=== PATIENT | male | born 1960 | race African-American/Black ===

== ENCOUNTER 2020-09-04 10:40 | Inpatient (IN) | payer OTHER, SELFPAY ==
[2020-09-04] MEDS ORDERED: Ondansetron PF 4 MG/2 ML Vial ONE (11:01)
[2020-09-04] MEDS ORDERED: Ketorolac Tromethamine 30 MG/ML VIAL ONE (11:01)
[2020-09-04 11:40] LABS: ALT (SGPT) 10 U/L (8-55); AST (SGOT) 25 U/L (5-34); Albumin 4.1 g/dL (3.4-4.8); Alkaline Phosphatase 80 U/L (40-110); Anion Gap 17 mmol/L (10-20); BUN (Urea Nitrogen) 8 mg/dL (8.4-25.7); Bilirubin, Direct 0.2 mg/dL (0.1-0.3); Bilirubin, Total 0.6 mg/dL (0.2-1.2); Calc. Creatinine Clearance 0 mL/min (70-130); Calcium 8.9 mg/dL (7.8-10.44); Carbon Dioxide 22 mmol/L (23-31); Chloride 106 mmol/L (98-107); Globulin 3.9 g/dL (2.4-3.5); Glucose 122 mg/dL (80-115); Hemoglobin 13.7 g/dL (14.0-18.0); Lipase 7 U/L (8-78); Mean Corpuscular HGB CONC 33.8 g/dL (32.0-36.0); Mean Corpuscular Hemoglobin 28.9 pg (27.0-31.0); Mean Corpuscular Volume 85.6 fL (78.0-98.0); Mean Platelet Volume 9.3 fL (7.4-10.4); Platelet Count 227 thou/uL (130-400); Potassium 4.6 mmol/L (3.5-5.1); RBC Distribution Width 13.8 % (11.5-14.5); Red Blood Cell (RBC) Count 4.75 mill/uL (4.70-6.10); Sodium 140 mmol/L (136-145); White Blood Cell (WBC) Count 7.5 thou/uL (4.8-10.8)
[2020-09-04 11:41] LABS: Eosinophils 2 % (0-10); Lymphocytes 63 % (21-51); MDiff Complete? YES; Monocytes 6 % (0-10); Neutrophil 29 % (42-75)
[2020-09-04] MEDS ORDERED: Morphine 4 MG/ML VIAL ONE ×2 (12:43→14:52)
[2020-09-04] MEDS ORDERED: Aspirin 325 MG TAB ONE (12:43)
--- NOTE | 2020-09-04 12:47 | CT ---
EXAM: Abdomen and pelvic CT scan with contrast: HISTORY: Abdominal pain radiating to back COMPARISON: None FINDINGS: Lungs:Minimal nonspecific increased linear interstitial markings in the lung bases, possibly chronic change or mild acute interstitial disease. Liver: Unremarkable. Gallbladder:Unremarkable. Common bile duct:Normal Pancreas:Unremarkable Spleen:Unremarkable. Adrenal glands:Unremarkable. Kidneys:No renal calculus or acute obstruction. Small poorly defined renal hypodensities, statistically small cysts. No evidence for bowel obstruction. Aorta:No evidence for aneurysm. Spine:No significant acute process. No CT evidence for acute appendicitis. The urinary bladder is unremarkable. Reproductive system:Unremarkable as visualized. Hernias:Fat-containing umbilical hernia. No abscess, adenopathy, or abnormal fluid collection within the abdomen or pelvis. IMPRESSION: No significant acute process in the abdomen or pelvis.
[2020-09-04] MEDS ORDERED: Nitroglycerin 2% Ointment 1 INCH/1 GM Packet ONE (13:26)
[2020-09-04] MEDS ORDERED: Bisacodyl 5 MG TAB PO PRN (13:55)
[2020-09-04] MEDS ORDERED: Ondansetron ODT 4 MG TAB PO PRN (13:55)
[2020-09-04] MEDS ORDERED: Iopamidol-370 76% 500 ML 1 ML ONE (14:25)
[2020-09-04 14:29] LABS: Hemoglobin A1c 6.9 % (4.0-6.0)
--- NOTE | 2020-09-04 14:36 | ULT ---
Exam: Right upper quadrant ultrasound: HISTORY: Right upper quadrant abdominal pain COMPARISON: None FINDINGS: Visualized liver:Heterogeneous liver echogenicity Gallbladder:No evidence of gallstones, wall thickening, edema, or pericholecystic fluid. Common bile duct:Within normal limits. Somewhat small right kidney. Unremarkable visualized pancreas. No evidence for abscess or abnormal fluid collection in the right upper quadrant. IMPRESSION: No evidence of gallstones. Heterogeneous liver echogenicity evidence for nonspecific hepatic parenchymal process. Somewhat small echogenic right kidney evidence for nonspecific chronic renal disease.
[2020-09-04 14:41] LABS: Cardiac Risk 5.5 (Less than 4.5)
[2020-09-04] MEDS ORDERED: Enoxaparin Sodium 100 MG/ML SYRINGE ONE (14:41)
--- NOTE | 2020-09-04 15:03 | HP ---
PRIMARY CARE PHYSICIAN: None. REASON FOR ADMISSION: Pain in abdomen. HISTORY OF PRESENT ILLNESS: This is a very pleasant 60-year-old male gentleman with no known past medical history, presents to the emergency room at [facility] with complaints of epigastric abdominal pain since 4 days. 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 The patient says he never had any medical issues, but was diagnosed with a blood pressure issue one year back. Unfortunately, he could not comply with medications as prescribed by his physician. No other current complaints of chest pain, shortness of breath, fever, rigors, chills, nausea, vomiting, diaphoresis, blurring of vision, tingling, numbness, burning micturition, constipation, claudication, anxiety, depression, hematuria, hematochezia, cough, expectoration, syncope, seizures, PND, or orthopnea has been noted at this point of time. According to the patient, he does not take any medications at home. The only surgery ever had was appendectomy. SOCIAL HISTORY: The patient denies tobacco, alcohol, or recreational drug abuse. FAMILY HISTORY: Strong family history of coronary artery disease without any premature incidence. PAST MEDICAL HISTORY: Benign essential hypertension. ALLERGIES: NO KNOWN DRUG ALLERGIES. MEDICATIONS: At home, none. REVIEW OF SYSTEMS: Except as documented all systems reviewed and negative. PHYSICAL EXAMINATION: GENERAL: This is a 60-year-old male gentleman lying in his hospital bed, complaining of intermittent abdominal pain, not in acute distress though. VITAL SIGNS: Has a heart rate of 75 per minute, respiratory rate of 16 per minute, blood pressure of 185/93 mmHg, saturation of 90% on room. Has an airway which is clear. HEENT: Atraumatic, normocephalic. NECK: Supple. No JVD. CVS: S1, S2. No abnormal rhythms or murmurs. CHEST: Bilateral air entry present. No rhonchi. No wheeze. ABDOMEN: Soft, nontender. Epigastric guarding is noted without any rigidity. Chest bilateral air entry present. No rhonchi. No wheeze noted. EXTREMITIES: No cyanosis. No edema. No clubbing. NEUROLOGIC: The patient is alert and oriented x3. No focal motor or sensory deficits noted. HEME: No ecchymosis or petechiae. PSYCH: No depression or anxiety. DIAGNOSTIC STUDIES: WBC 7.5, hemoglobin 13.7, hematocrit 40.7, platelets are 227. Sodium 140, potassium of 4.6, chloride 106, carbon dioxide 22, BUN 8, creatinine 1.09, glucose 122, AST 25, ALT 10, CK-MB is 3. Troponins are 0.177. Lipase is 7. CT of the abdomen and pelvis has been reviewed, shows no significant acute process in the abdomen and pelvis. Right upper quadrant ultrasound is pending along with full echocardiogram evaluation. ASSESSMENT: 1. Acute abdominal pain with initial suspicion for pancreatitis versus gallbladder pathology. Currently, no evidence of pancreatic involvement noted. CT of the abdomen negative for any inflammation as well as lipase being normal. 2. Elevated troponins likely type 2 [id number] myocardial infarction which could be demand ischemia, but based on the patient's persistent epigastric abdominal pain, actual not-[id number] myocardial infarction situation cannot rule out and I will consult Cardiology Services to review this and possibly have a stress test evaluation during his hospital course. 3. Hypertensive urgency. We will start the patient on some oral medications right now and if needed we will upgrade this to IV medications based on blood pressure control. 4. Slightly elevated blood sugars. I will do a glycosylated hemoglobin A1c to review. 5. Obesity. Extensive education in regard to weight loss programs and exercise has been noted to the patient and his fiancee at bedside. PLAN: Discussed in detail of the diagnosis, treatment, and followup with the patient as well as patient's family members at bedside. We will follow official echocardiogram evaluation along with right upper quadrant ultrasound. Advised the patient over lipid profile review and at this point of time, we have started the patient on aspirin of 325 mg daily along with Lipitor 80 mg daily and for blood pressure, we will start the patient on hydrochlorothiazide and metoprolol. Closely monitor the patient's blood pressure numbers, I likely think his numbers are elevated because of demand ischemia, but this patient has significant noncompliance and follow up with physicians as well as medications. We will closely monitor and evaluate. Advance directives are full code. Discharge planning will depend on further hospital course. Discharge possible date would be 09/07/2020. Job ID: [id number]
[2020-09-04] MEDS ORDERED: Metoprolol Tartrate 25 MG TAB ONE (21:07)
[2020-09-04] MEDS ORDERED: Famotidine 20 MG TAB ONE (21:07)
[2020-09-04] MEDS: Metoprolol Tartrate 25 MG TAB PO SCH (21:33)
[2020-09-04] MEDS: Famotidine 20 MG TAB PO SCH (21:33)
[2020-09-04] MEDS: Atorvastatin Calcium 40 MG TAB PO SCH (22:17)
[2020-09-05] MEDS: Acetaminophen 325 MG TAB PO PRN ×3 (03:45→16:12)
[2020-09-05 04:52] LABS: Hemoglobin 12.1 g/dL (14.0-18.0); Mean Corpuscular HGB CONC 32.5 g/dL (32.0-36.0); Mean Corpuscular Hemoglobin 28.1 pg (27.0-31.0); Mean Corpuscular Volume 86.5 fL (78.0-98.0); Mean Platelet Volume 8.9 fL (7.4-10.4); Platelet Count 198 thou/uL (130-400); RBC Distribution Width 13.7 % (11.5-14.5); White Blood Cell (WBC) Count 7.7 thou/uL (4.8-10.8)
[2020-09-05 04:56] LABS: ALT (SGPT) 17 U/L (8-55); AST (SGOT) 20 U/L (5-34); Albumin 3.5 g/dL (3.4-4.8); Alkaline Phosphatase 72 U/L (40-110); Anion Gap 16 mmol/L (10-20); BUN (Urea Nitrogen) 14 mg/dL (8.4-25.7); Bilirubin, Total 0.3 mg/dL (0.2-1.2); Calc. Creatinine Clearance 88 mL/min (70-130); Calcium 8.3 mg/dL (7.8-10.44); Carbon Dioxide 21 mmol/L (23-31); Chloride 104 mmol/L (98-107); Glucose 129 mg/dL (80-115); Potassium 3.7 mmol/L (3.5-5.1); Protein, Total 6.5 g/dL (5.8-8.1); Sodium 137 mmol/L (136-145)
[2020-09-05 05:19] LABS: Eosinophils 4 % (0-10); Lymphocytes 58 % (21-51); MDiff Complete? YES; Monocytes 8 % (0-10); Neutrophil 30 % (42-75)
[2020-09-05] MEDS: Famotidine 20 MG TAB PO SCH ×2 (09:13→21:40)
[2020-09-05] MEDS: Metoprolol Tartrate 25 MG TAB PO SCH (09:13)
[2020-09-05] MEDS: Aspirin 325 MG TAB PO SCH (09:14)
[2020-09-05] MEDS: Hydrochlorothiazide 25 MG TAB PO SCH (09:14)
--- NOTE | 2020-09-05 11:32 | PDOC.HOSPP ---
- Subjective Encounter Date: 09/05/20 (f/u abd pain) Encounter Time: 11:30 Subjective: Pt c/o right sided abd pain - the reason he presented to the hospital. at the lateral aspect, occ radiation to back, temporary relief with movement, no change with food. He denies any other sx. - Objective Vital Signs & Weight: Vital Signs (12 hours) Temp Pulse Resp BP Pulse Ox 09/05/20 08:00 96.0 F L 56 L 17 131/75 97 09/05/20 02:53 97.9 F 69 16 179/92 H 100 Weight Weight 209 lb 10.554 oz Result Diagrams: 09/05/20 03:53 09/05/20 03:53 EKG Reviewed by me: Yes (tele - sinus 50-60's) Hospitalist ROS - Medication Medications: Active Medications Generic Name Dose Route Start Last Admin Trade Name Freq PRN Reason Stop Dose Admin Acetaminophen 650 mg 09/04/20 13:55 09/05/20 09:15 Acetaminophen 325 Mg Tab PO 650 mg Q4H PRN Administration Headache/Fever/Mild Pain (1-3) Aspirin 325 mg 09/05/20 09:00 09/05/20 09:14 Aspirin 325 Mg Tab PO 325 mg DAILY JACQUE Administration Atorvastatin Calcium 80 mg 09/04/20 21:00 09/04/20 22:17 Atorvastatin Calcium 40 Mg Tab PO 80 mg HS JACQUE Administration Famotidine 20 mg 09/04/20 21:00 09/05/20 09:13 Famotidine 20 Mg Tab PO 20 mg BID JACQUE Administration Hydrochlorothiazide 25 mg 09/05/20 09:00 09/05/20 09:14 Hydrochlorothiazide 25 Mg Tab PO 25 mg DAILY JACQUE Administration - Exam General Appearance: NAD Heart: RRR, no murmur Respiratory: CTAB, no wheezes, no rales, no ronchi Gastrointestinal: soft, non-distended, normal bowel sounds, no palpable masses Gastrointestinal - other findings: ttp with light palpation right lower ribs and abdomen anteriorly Extremities: no cyanosis, no clubbing, no edema Psychiatric: normal affect Hosp A/P (1) Abdominal pain Code(s): R10.9 - UNSPECIFIED ABDOMINAL PAIN Status: Acute Qualifiers: Abdominal location: right upper quadrant Qualified Code(s): R10.11 - Right upper quadrant pain (2) Elevated troponin Code(s): R77.8 - OTHER SPECIFIED ABNORMALITIES OF PLASMA PROTEINS Status: Acute (3) Dyslipidemia Code(s): E78.5 - HYPERLIPIDEMIA, UNSPECIFIED Status: Chronic (4) Hypertension Code(s): I10 - ESSENTIAL (PRIMARY) HYPERTENSION Status: Chronic Qualifiers: Hypertension type: essential hypertension Qualified Code(s): I10 - Essential (primary) hypertension (5) Diabetes mellitus Code(s): E11.9 - TYPE 2 DIABETES MELLITUS WITHOUT COMPLICATIONS Status: Chronic Qualifiers: Diabetes mellitus type: type 2 Diabetes mellitus rat exterminator insulin use: without fdc use (6) Gout Code(s): M10.9 - GOUT, UNSPECIFIED Status: Chronic Qualifiers: Gout site: unspecified site - Plan Abdominal pain - suspect nerve related as benign abd exam and no acute changes on abd us and CT scan. - trial of lidocaine patch indeterminant troponin - stress test and echo today - appreciate Cardiology consult HTN - meds started HLP - high dose statin DM -= new dx, will need outpatient f/u with PCP dvt prophy - ambulatory gi prophy - not indicated code status full reviewed plan of care with patient/his fiancee, no questions or further needs at end of eval
[2020-09-05] MEDS: Lidocaine 5% Patch TD SCH (12:31)
--- NOTE | 2020-09-05 12:49 | CON ---
DATE OF CONSULTATION: HISTORY OF PRESENT ILLNESS: The patient is a 60-year-old gentleman with a history of hypertension who presents for evaluation of abdominal discomfort. The patient has no previous cardiac history. The patient was in usual state of health when he presented with abdominal discomfort. The patient denied having any chest discomfort. The patient states he is very physically active and denies having any chest discomfort or dyspnea with exertion. The patient does have several cardiac risk factors including hypertension and a family history of coronary artery disease. PAST MEDICAL HISTORY: Hypertension. PAST SURGICAL HISTORY: Appendectomy. SOCIAL HISTORY: Former smoker. FAMILY HISTORY: Positive family history of heart disease. MEDICATIONS: Blood pressure medicine which the patient does not recall the name. SOCIAL HISTORY: Former smoker. REVIEW OF SYSTEMS: Ten-point system otherwise unremarkable. PHYSICAL EXAMINATION: GENERAL: Well-developed gentleman, in no acute distress. VITAL SIGNS: Blood pressure was 131/75. NECK: No jugular venous distention. LUNGS: Clear to auscultation. HEART: Regular rate and rhythm. Normal S1, S2. No murmurs. ABDOMEN: Nondistended. EXTREMITIES: Show no edema. VASCULAR: Radial pulses 2+. LABORATORY DATA: Sodium 137, potassium 3.7, chloride 104, bicarb 21, BUN 14, creatinine 1.19, glucose 129. Troponin was 0.184, MB 3.0. White blood cell count 7.7, hemoglobin 12.1, hematocrit 37.2, platelet 198. EKG normal sinus rhythm with left ventricular hypertrophy and T-wave abnormality suggestive of ischemia or repolarization abnormality. IMPRESSION: 1. Abdominal discomfort. 2. Abnormal ECG. 3. Hypertension. 4. Dyslipidemia. 5. Hyperglycemia. This gentleman presents with abdominal discomfort. From a cardiac standpoint, he has an abnormal ECG. I would recommend further evaluation including an echocardiogram and stress testing. We will follow this patient with you through his hospitalization. Job ID: [id number] [facility]
[2020-09-05] MEDS ORDERED: Regadenoson 0.4 MG/5 ML SYRINGE ONE (13:38)
--- NOTE | 2020-09-05 16:17 | NM ---
NUCLEAR MEDICINE CARDIAC STRESS WITH EF AND WALL MOTION: HISTORY: Non-STEMI. Hypertension. TECHNIQUE: Patient was administered 9.20 mCi of technetium 99m sestamibi for rest imaging and 27.50 focus of sung hnetium minus is made for stress imaging. Cardiac gating is performed FINDINGS: Stress attenuation correction images demonstrate homogeneous distribution of the radiotracer. No evid ence of reversibility or fixed defect. End-diastolic volume is 137 mL End-systolic volume is 94 mL Cardiac gating: Global hypokinesis. 32% ejection fraction IMPRESSION: 1. No evidence of reversibility or fixed defect 2. Enlarged left ventricle 3. Rectal wall hypokinesis. 4. 32% ejection fraction Transcribed Date/Time: 09/05/2020 4:19 PM
[2020-09-05] MEDS: Atorvastatin Calcium 40 MG TAB PO SCH (21:40)
[2020-09-05] MEDS ORDERED: hydrALAZINE 20 MG/ML VIAL SLOW IVP SCH (23:30)
[2020-09-06] MEDS: Lidocaine Patch Removal 1 EACH TOP SCH (00:35)
[2020-09-06] MEDS: Acetaminophen 325 MG TAB PO PRN ×3 (03:39→12:00)
[2020-09-06 05:30] LABS: Anion Gap 14 mmol/L (10-20); BUN (Urea Nitrogen) 13 mg/dL (8.4-25.7); Calc. Creatinine Clearance 99 mL/min (70-130); Calcium 8.9 mg/dL (7.8-10.44); Carbon Dioxide 26 mmol/L (23-31); Chloride 104 mmol/L (98-107); Glucose 117 mg/dL (80-115); Potassium 3.7 mmol/L (3.5-5.1); Sodium 140 mmol/L (136-145)
[2020-09-06] MEDS: Famotidine 20 MG TAB PO SCH ×2 (07:57→20:41)
[2020-09-06] MEDS: Hydrochlorothiazide 25 MG TAB PO SCH (07:57)
[2020-09-06] MEDS: Aspirin 325 MG TAB PO SCH (07:57)
[2020-09-06] MEDS ORDERED: NIFEdipine XL 30 MG TAB PO SCH (09:00)
[2020-09-06] MEDS: Lidocaine 5% Patch TD SCH (09:57)
--- NOTE | 2020-09-06 10:06 | PDOC.HOSPP ---
- Subjective Encounter Date: 09/06/20 (f/u hypertension) Encounter Time: 10:04 Subjective: 60 y/o male with known untreated htn who was admitted for right abd/flank pain. Pt with an indeterminant troponin and evaluation has been focused on his heart. The abd eval is negative for acute process with US and CT abd/pelvis. Pt's bp's remain elevated today despite new medication, which keeps him in the hospital. Pt c/o pain persisting on the right side - thinks it was better last night with the patch. It is worse today. BP's into the 200's last night. - Objective Vital Signs & Weight: Vital Signs (12 hours) Temp Pulse Resp BP Pulse Ox 09/06/20 09:55 73 09/06/20 07:39 97 09/06/20 07:35 96 F L 73 17 171/87 H 97 09/06/20 03:33 97.9 F 64 18 168/78 H 97 09/06/20 00:25 174/92 H 09/06/20 00:02 75 09/05/20 23:15 196/102 H Weight Weight 209 lb 10.554 oz I&O: 09/05/20 09/06/20 09/07/20 06:59 06:59 06:59 Intake Total 720 Output Total 400 Balance 320 Result Diagrams: 09/05/20 03:53 09/06/20 03:50 EKG Reviewed by me: Yes (tele - sinus 70's, alexandre to 50's) Hospitalist ROS - Medication Medications: Active Medications Generic Name Dose Route Start Last Admin Trade Name Freq PRN Reason Stop Dose Admin Acetaminophen 650 mg 09/04/20 13:55 09/06/20 07:57 Acetaminophen 325 Mg Tab PO 650 mg Q4H PRN Administration Headache/Fever/Mild Pain (1-3) Aspirin 325 mg 09/05/20 09:00 09/06/20 07:57 Aspirin 325 Mg Tab PO 325 mg DAILY JACQUE Administration Atorvastatin Calcium 80 mg 09/04/20 21:00 09/05/20 21:40 Atorvastatin Calcium 40 Mg Tab PO 80 mg HS JACQUE Administration Famotidine 20 mg 09/04/20 21:00 09/06/20 07:57 Famotidine 20 Mg Tab PO 20 mg BID JACQUE Administration Hydrochlorothiazide 25 mg 09/05/20 09:00 09/06/20 07:57 Hydrochlorothiazide 25 Mg Tab PO 25 mg DAILY JACQUE Administration Lidocaine 1 patch 09/05/20 11:30 09/06/20 09:57 Lidocaine 5% Patch TD 1 patch Q24H JACQUE Administration Miscellaneous Medication 1 each 09/05/20 23:30 09/06/20 00:35 Lidocaine Patch Removal 1 Each TOP 1 each 2330 JACQUE Administration Nifedipine 30 mg 09/06/20 09:00 09/06/20 09:55 Nifedipine Xl 30 Mg Tab PO 30 mg DAILY JACQUE Administration Ondansetron HCl 4 mg 09/04/20 13:55 09/05/20 16:12 Ondansetron Odt 4 Mg Tab PO 4 mg Q6H PRN Administration Nausea/Vomiting - Exam General Appearance: NAD Heart: RRR, no murmur Respiratory: CTAB, no wheezes, no rales, no ronchi Gastrointestinal: soft, non-distended, normal bowel sounds, no guarding, no rigidity Gastrointestinal - other findings: ttp along the right lower ribs and abdomen - Extremities: no cyanosis Psychiatric: normal affect Hosp A/P (1) Abdominal pain Code(s): R10.9 - UNSPECIFIED ABDOMINAL PAIN Status: Acute Qualifiers: Abdominal location: right upper quadrant Qualified Code(s): R10.11 - Right upper quadrant pain (2) Elevated troponin Code(s): R77.8 - OTHER SPECIFIED ABNORMALITIES OF PLASMA PROTEINS Status: Acute (3) Dyslipidemia Code(s): E78.5 - HYPERLIPIDEMIA, UNSPECIFIED Status: Chronic (4) Hypertension Code(s): I10 - ESSENTIAL (PRIMARY) HYPERTENSION Status: Chronic Qualifiers: Hypertension type: essential hypertension Qualified Code(s): I10 - Esse ntial (primary) hypertension (5) Diabetes mellitus Code(s): E11.9 - TYPE 2 DIABETES MELLITUS WITHOUT COMPLICATIONS Status: Chronic Qualifiers: Diabetes mellitus type: type 2 Diabetes mellitus mcfp insulin use: without weight caller use (6) Gout Code(s): M10.9 - GOUT, UNSPECIFIED Status: Chronic Qualifiers: Gout site: unspecified site - Plan Abdominal pain - suspect nerve related as benign abd exam and no acute changes on abd us and CT scan. - recommend f/u with PCP and referral to pain management for evaluation indeterminant troponin - s/p stress test and echo - no intervention indicated here HTN - not optimally controlled - med added by Cardiology today HLP - high dose statin DM/borderline DM - new dx, will need outpatient f/u with PCP dvt prophy - ambulatory gi prophy - not indicated code status full reviewed plan of care with patient, no questions or further needs at end of eval anticipate d/c later today if bp's are improved Addendum 18:21 - repeat bp's today in the 180's. Do not recommend discharge. Sat down and discussed with patient and his fiancee. He is now on 4 low-dose oral medications for control of chronic hypertension that was untreated prior to this admission. We discussed the concern of discharge with bp's this high - I do not recommend it. He expressed frustration that the bp isn't changing and he is ready to go home. I advise against it, and discussed we cannot force him to stay in the hospital. He is willing to stay and his fiancee has arranged a new PCP with an appointment on Sep 30. Anticipate improvement in bp's tonight and discharge tomorrow.
[2020-09-06] MEDS ORDERED: Metoprolol Tartrate 25 MG TAB PO SCH (15:15)
[2020-09-06] MEDS ORDERED: Losartan 25 MG TAB PO SCH (15:15)
[2020-09-06] MEDS: Metoprolol Tartrate 25 MG TAB PO SCH (20:41)
[2020-09-06] MEDS: Atorvastatin Calcium 40 MG TAB PO SCH (20:41)
[2020-09-07] MEDS: Lidocaine Patch Removal 1 EACH TOP SCH (00:19)
[2020-09-07] MEDS ORDERED: NIFEdipine XL 30 MG TAB PO SCH (08:13)
[2020-09-07] MEDS ORDERED: Losartan 25 MG TAB PO SCH (09:00)
[2020-09-07] MEDS ORDERED: NIFEdipine XL 60 MG TAB PO SCH (09:00)
[2020-09-07] MEDS: Metoprolol Tartrate 25 MG TAB PO SCH (09:01)
[2020-09-07] MEDS: Hydrochlorothiazide 25 MG TAB PO SCH (09:01)
[2020-09-07] MEDS: Aspirin 325 MG TAB PO SCH (09:01)
[2020-09-07] MEDS: Famotidine 20 MG TAB PO SCH (09:01)
[2020-09-07] MEDS: Acetaminophen 325 MG TAB PO PRN (09:03)
[2020-09-07] MEDS ORDERED: Cyclobenzaprine 10 MG TAB PO SCH (11:15)
[2020-09-07] MEDS: Lidocaine 5% Patch TD SCH (11:44)
[2020-09-07 12:53] VITALS: BP 135/95; TEMP 97
--- NOTE | 2020-09-07 17:53 | PDOC.DS.DS ---
Provider - Provider Date of Admission: 09/04/20 13:55 Date of Discharge: 09/07/20 Admitting Provider: Nael Whalen MD Consultations: Cardiology Primary Care Physician: OUT OF TOWN Course - Hospital Course Hospital Course: Patient is 60-year-old male who initially presented to the hospital with complaints of abdominal pain. Patient was noted to have significantly elevated blood pressure. Patient was noted to have mildly elevated troponins. He underwent a stress test. Stress test indicated EF of 32% with some wall hypokinesis. At this time cardiology was consulted. She also had an echocardiogram which indicated an EF of 50 to 55% with concentric left ventricular hypertrophy. Patient also was noted to have diabetes with a hemogl obin A1c of 6.9. And high cholesterol. I did educate the patient of diet weight loss and exercise. And he will need to follow-up with his primary care which she has made an appointment on the end of this month. (1) Abdominal pain Code(s): R10.9 - UNSPECIFIED ABDOMINAL PAIN Status: Acute Qualifiers: Abdominal location: right upper quadrant Qualified Code(s): R10.11 - Right upper quadrant pain (2) Elevated troponin Code(s): R77.8 - OTHER SPECIFIED ABNORMALITIES OF PLASMA PROTEINS Status: Acute (3) Dyslipidemia Code(s): E78.5 - HYPERLIPIDEMIA, UNSPECIFIED Status: Chronic (4) Hypertension uncontrolled Code(s): I10 - ESSENTIAL (PRIMARY) HYPERTENSION Status: Chronic Qualifiers: Hypertension type: essential hypertension Qualified Code(s): I10 - Essential (primary) hypertension (5) Diabetes mellitus new onset Code(s): E11.9 - TYPE 2 DIABETES MELLITUS WITHOUT COMPLICATIONS Status: Chronic Qualifiers: Diabetes mellitus type: type 2 Diabetes mellitus [facility] (6) Gout Code(s): M10.9 - GOUT, UNSPECIFIED Status: Chronic Qualifiers: Gout site: unspecified site Resuscitation Status: 09/04/20 13:55 Resuscitation Status Routine Resuscitation Status: FULL: Full Resuscitation - Labs Lab Results: 09/05/20 03:53 09/06/20 03:50 - Physical Exam Vitals: Vital Signs (12 hours) Temp Pulse Resp BP Pulse Ox 09/07/20 12:00 97.0 F L 56 L 16 135/95 H 99 09/07/20 09:01 58 L 09/07/20 08:00 96.0 F L 60 17 140/62 96 09/07/20 07:37 96 Weight Weight 209 lb 10.554 oz Physical Exam: The patient was seen and examined on the day of discharge. Plan - Discharge Medications Prescriptions: Aspirin 81 mg PO DAILY #30 tab.chew Losartan [Cozaar] 25 mg PO DAILY #30 tab Diclofenac Sodium [Diclofenac Sodium 1% Gel] 4 gm TOP QID #1 tube Cyclobenzaprine [Flexeril] 10 mg PO TID #10 tab metFORMIN [Glucophage] 500 mg PO BID-WM #60 tab Hydrochlorothiazide 25 mg PO DAILY #30 tab Atorvastatin Calcium [Lipitor] 80 mg PO HS #30 tab Metoprolol Tartrate [Lopressor] 25 mg PO BID #60 tab NIFEdipine [Procardia XL] 60 mg PO DAILY #30 tab Home Medications: Medication Instructions Recorded Confirmed Type Allopurinol [Zyloprim] 200 mg PO BID 09/05/20 09/05/20 History Diclofenac Sodium [Diclofenac 4 gm TOP QID PRN 09/05/20 09/05/20 History Sodium 1% Gel] Aspirin 81 mg PO DAILY #30 tab.chew 09/07/20 Rx Atorvastatin Calcium [Lipitor] 80 mg PO HS #30 tab 09/07/20 Rx Cyclobenzaprine [Flexeril] 10 mg PO TID #10 tab 09/07/20 Rx Diclofenac Sodium [Diclofenac 4 gm TOP QID #1 tube 09/07/20 Rx Sodium 1% Gel] Hydrochlorothiazide 25 mg PO DAILY #30 tab 09/07/20 Rx Losartan [Cozaar] 25 mg PO DAILY #30 tab 09/07/20 Rx Metoprolol Tartrate [Lopressor] 25 mg PO BID #60 tab 09/07/20 Rx NIFEdipine [Procardia XL] 60 mg PO DAILY #30 tab 09/07/20 Rx metFORMIN [Glucophage] 500 mg PO BID-WM #60 tab 09/07/20 Rx Allergies: No Known Allergies Allergy (Verified 09/05/20 03:14) - Discharge Instructions Discharge Instructions:: check your blood pressure daily and also check your blood sugar daily. Activity:: Activity as Tolerated Nourishment:: Diabetic Diet, Heart Healthy Diet - Follow up Plan Referrals: [facility] [Primary Care Provider] - 09/30/20 (Pleae follow up with your new PCP on your scheduled September 30 appointment.) [facility] [MD Not on Staff] - 09/30/20 (Pleae follow up with your new PCP on your scheduled September 30 appointment. Please follow up with your PCP if you have continued abdominal pain for further work up.) Ashish Vidal MD [Active] - (Please call the office to schedule an appointment if you have continued cardiac concerns) Disposition: HOME Quality - Care Measures CORE MEASURES:: N/A
--- NOTE | 2020-09-11 15:22 | PQF ---
CLINICAL DOCUMENTATION CLARIFICATION FORM: Dear : Amanda Baltazar MD Date / Time: 09/11/2020 Please exercise your independent, professional judgment in responding to the clarification form. Clinical indicators are provided on the bottom of this form for your review Please check appropriate box(es) to clarify if the following diagnosis has been ruled in our ruled out: [ ] Ruled in NSTEMI [ ] Continue to treat [ ] Resolved [ x ] Ruled out NSTEMI [ ] Improving [ ] Cannot rule out diagnosis [ ] Other diagnosis (Please specify if any) [ ] Unable to determine Physician Signature: Date/Time: For continuity of documentation, please document condition throughout progress notes and discharge summary. Thank You To be completed by CDI/Coding staff for physician review: Present Clinical Indicators - Signs / Symptoms / Labs Results and Location in Medical Record [x] Actual non-ST elevation myocardial infarction situation ruled out H&P on 09/04 [x] Elevated troponins likely type2 non-ST elevation myocardial infarction which could be demand ischemia. H&P on 09/04 [x] Global hypokinesis. 32% Ejection fraction Stress test on 09/05 [x] Patient given aspirin and lovenox to cover for NSTEMI ED provider report on Present Risk Factors Results and Location in Medical Record [x] Hyperlipidemia Discharge summary on 09/07 [x] Hypertension H&P on 09/04 Present Treatments Results and Location in Medical Record [x] Aspirin 325 mg Medication from 09/05 to 09/07 [x] Lovenox 100 mg Medication on 09/04 [ ] [ ] CDS/Rate Manager Signature: AAS Phone #: Date/Time: 09/11/2020 This is a permanent part of the Medical Record [facility]
== END 2020-09-07 15:05 | disposition home or self-care (01) | DRG 392 ==
LOC: ERS 10:40 → ERHOLD 13:55 → 2NO 09-05 02:47
PROVIDERS: ADMIT Student in an Organized Health Care Education/Training Program; ATTEND Student in an Organized Health Care Education/Training Program
DX: R10.11 Right upper quadrant pain (principal); I16.0 Hypertensive urgency; I10 Essential (primary) hypertension; E66.9 Obesity, unspecified; E78.5 Hyperlipidemia, unspecified; E11.9 Type 2 diabetes mellitus without complications; R94.31 Abnormal electrocardiogram [ECG] [EKG]; M10.9 Gout, unspecified; Z68.30 Body mass index [BMI] 30.0-30.9, adult
CPT/HCPCS: 36415; 74177; 76705; 78452; 80048; 80053; 80061; 80076; 82553; 83036; 83690; 84443; 84484; 85025; 93005; 93017; 93306; 96372; 96374; 96375; 96376; A9500; J0360; J1650; J1885; J2270; J2405; J2785; Q0162; Q9967

== ENCOUNTER 2021-08-02 16:11 | Emergency (ER) | payer OTHER ==
[2021-08-02 17:32] LABS: #Basophils 0.1 thou/uL (0.0-0.2); #Eosinphils 0.3 thou/uL (0.0-0.7); #Lymphocytes 3.5 thou/uL (1.20-3.40); #Monocytes 0.4 thou/uL (0.11-0.59); #Neutrophils 3.4 thou/uL (1.40-6.50); %Basophils 0.8 % (0.0-1.0); %Eosinophils 3.9 % (0.0-10.0); %Lymphocytes 45.7 % (21.0-51.0); %Monocytes 5.1 % (0.0-10.0); %Neutrophils 44.5 % (42.0-75.0); Hemoglobin 14.2 g/dL (14.0-18.0); Mean Corpuscular HGB CONC 33.4 g/dL (32.0-36.0); Mean Corpuscular Hemoglobin 29.4 pg (27.0-31.0); Platelet Count 238 thou/uL (130-400); RBC Distribution Width 13.1 % (11.5-14.5); Red Blood Cell (RBC) Count 4.85 mill/uL (4.70-6.10); White Blood Cell (WBC) Count 7.6 thou/uL (4.8-10.8)
[2021-08-02 17:42] LABS: PTT 27.6 sec (22.9-36.1)
[2021-08-02] MEDS ORDERED: Labetalol HCl 100 MG/20 ML VIAL ONE (17:50)
[2021-08-02 17:57] LABS: ALT (SGPT) 12 U/L (8-55); AST (SGOT) 16 U/L (5-34); Albumin 4.2 g/dL (3.4-4.8); Alkaline Phosphatase 82 U/L (40-110); Anion Gap 13 mmol/L (10-20); BUN (Urea Nitrogen) 13 mg/dL (8.4-25.7); Bilirubin, Total 0.5 mg/dL (0.2-1.2); Calc. Creatinine Clearance 0 mL/min (70-130); Calcium 9.2 mg/dL (7.8-10.44); Carbon Dioxide 24 mmol/L (23-31); Chloride 106 mmol/L (98-107); Globulin 3.2 g/dL (2.4-3.5); Glucose 127 mg/dL (80-115); Potassium 3.5 mmol/L (3.5-5.1); Protein, Total 7.4 g/dL (5.8-8.1); Sodium 139 mmol/L (136-145)
[2021-08-02 18:11] LABS: CKMB 3.3 ng/mL (0-6.6)
[2021-08-02 19:08] LABS: Bilirubin Negative (Negative); Blood, Urine Negative (Negative); Clarity Clear (Clear); Glucose, Urine (Dipstick) Normal (Negative); Ketone, Urine Negative (Negative); Leukocyte Negative Leu/uL (Negative); Nitrite Negative (Negative); Protein, Urine (Dipstick) 10 mg/dL (Neg-Trace); Specific Gravity, Urine 1.024 (1.002-1.036); Urobilinogen Normal mg/dL (Less than 2); pH, Urine 5.5 (5.0-9.0)
== END 2021-08-02 21:53 | disposition short-term general hospital (02) ==
LOC: ERS 16:11
DX: I63.9 Cerebral infarction, unspecified (principal); D33.2 Benign neoplasm of brain, unspecified; I10 Essential (primary) hypertension; Z79.899 Other long term (current) drug therapy
CPT/HCPCS: 36416; 70450; 71045; 80053; 81003; 82553; 84484; 85025; 85610; 85730; 93005; 96374; 96376

== ENCOUNTER 2021-09-03 17:56 | Emergency (ER) | payer OTHER ==
[2021-09-03] MEDS ORDERED: HYDROcodone/Acetaminophen 5/325 mg Tablet ONE (18:53)
[2021-09-03] MEDS ORDERED: Ibuprofen 200 MG TAB ONE (18:54)
[2021-09-03] MEDS ORDERED: Bupivacaine 0.5% 10 ML VIAL ONE (19:11)
== END 2021-09-03 20:55 | disposition home or self-care (01) ==
LOC: ERS 17:56
DX: S63.284A Dislocation of proximal interphalangeal joint of right ring finger, initial encounter (principal); I10 Essential (primary) hypertension; M10.9 Gout, unspecified; F17.210 Nicotine dependence, cigarettes, uncomplicated; Z79.899 Other long term (current) drug therapy; W10.8XXA Fall (on) (from) other stairs and steps, initial encounter
CPT/HCPCS: 26770; J3490

== ENCOUNTER 2022-11-02 11:37 | Emergency (ER) | payer BC, SELFPAY ==
[2022-11-02] MEDS ORDERED: Ketorolac Tromethamine 30 MG/ML VIAL ONE (12:30)
== END 2022-11-02 12:55 | disposition home or self-care (01) ==
LOC: ERS 11:37
DX: M10.9 Gout, unspecified (principal); I10 Essential (primary) hypertension; E11.9 Type 2 diabetes mellitus without complications; F17.210 Nicotine dependence, cigarettes, uncomplicated; Z79.899 Other long term (current) drug therapy
CPT/HCPCS: 96372; 99283; J1885

== ENCOUNTER 2023-03-16 12:31 | Emergency (ER) | payer BC | END 2023-03-16 15:27 | disposition home or self-care (01) | LOC: ERS 12:31 | DX: M10.9 Gout, unspecified (principal) | CPT/HCPCS: 99283 ==

== ENCOUNTER 2023-08-13 10:30 | Emergency (ER) | payer BC ==
[2023-08-13 11:16] LABS: #Basophils 0.1 thou/uL (0.0-0.2); #Eosinphils 0.4 thou/uL (0.0-0.7); #Monocytes 0.4 thou/uL (0.11-0.59); #Neutrophils 3.2 thou/uL (1.40-6.50); %Basophils 0.7 % (0.0-1.0); %Eosinophils 6.1 % (0.0-10.0); %Lymphocytes 42.6 % (21.0-51.0); %Neutrophils 44.5 % (42.0-75.0); Hematocrit 42.7 % (42.0-52.0); Hemoglobin 14.2 g/dL (14.0-18.0); Mean Corpuscular HGB CONC 33.3 g/dL (32.0-36.0); Mean Corpuscular Hemoglobin 29.8 pg (27.0-31.0); Mean Corpuscular Volume 89.7 fl (78.0-98.0); Mean Platelet Volume 9.6 fL (7.4-10.4); Platelet Count 236 10x3/uL (130-400); RBC Distribution Width 13.7 % (11.5-14.5); Red Blood Cell (RBC) Count 4.76 mill/uL (4.70-6.10); White Blood Cell (WBC) Count 7.2 10x3/uL (4.8-10.8)
[2023-08-13] MEDS ORDERED: Ketorolac Tromethamine 30 MG/ML VIAL ONE (11:20)
[2023-08-13 12:00] LABS: ALT (SGPT) 13 U/L (8-55); AST (SGOT) 16 U/L (5-34); Albumin 4.1 g/dL (3.4-4.8); Alkaline Phosphatase 54 U/L (40-110); Anion Gap 15 mmol/L (10-20); BUN (Urea Nitrogen) 9 mg/dL (8.4-25.7); Bilirubin, Total 0.8 mg/dL (0.2-1.2); Calc. Creatinine Clearance 0 mL/min (70-130); Calcium 9.2 mg/dL (7.8-10.44); Carbon Dioxide 26 mmol/L (23-31); Chloride 108 mmol/L (98-107); Estimated GFR 66; Glucose 130 mg/dL (80-115); Potassium 4.7 mmol/L (3.5-5.1); Protein, Total 6.1 g/dL (5.8-8.1); Sodium 144 mmol/L (136-145)
[2023-08-13 13:04] LABS: Bacteria/HPF None Seen HPF (None Seen); Bilirubin Negative (Negative); Blood, Urine Negative (Negative); CAUTI Indications for Culture Pelvic or flank pain; Clarity Clear (Clear); Glucose, Urine (Dipstick) Normal (Negative); Ketone, Urine Negative (Negative); Leukocyte Negative Leu/uL (Negative); Nitrite Negative (Negative); Protein, Urine (Dipstick) 20 mg/dL (Neg-Trace); RBC/HPF 0-3 HPF (0-3); Specific Gravity, Urine 1.023 (1.002-1.036); Squamous Epithelial None Seen HPF (0-3); Urobilinogen Normal mg/dL (Less than 2); WBC/HPF 0-3 HPF (0-3); pH, Urine 5.5 (5.0-9.0)
[2023-08-13 13:06] LABS: Urine Culture Reflex No No
[2023-08-13] MEDS ORDERED: Cyclobenzaprine 10 MG TAB ONE (14:09)
== END 2023-08-13 14:12 | disposition home or self-care (01) ==
LOC: ERS 10:30
DX: M54.50 Low back pain, unspecified (principal); I10 Essential (primary) hypertension; F17.210 Nicotine dependence, cigarettes, uncomplicated; Z79.899 Other long term (current) drug therapy
CPT/HCPCS: 36415; 80053; 81001; 85025; 96372; 99283; J1885

== ENCOUNTER 2024-04-08 12:50 | Emergency (ER) | payer BC, OTHER ==
[2024-04-08] MEDS ORDERED: Morphine 4 MG/ML VIAL ONE (15:36)
[2024-04-08] MEDS ORDERED: Ondansetron PF 4 MG/2 ML Vial ONE (15:36)
[2024-04-08 16:41] LABS: #Basophils 0.03 10x3/uL (0.0-0.2); %Basophils 0.3 % (0.0-1.0); %Eosinophils 2.4 % (0.0-10.0); %Lymphocytes 36.2 % (21.0-51.0); %Monocytes 6.9 % (0.0-10.0); %Neutrophils 53.8 % (42.0-75.0); Hematocrit 36.4 % (42.0-52.0); Hemoglobin 12.9 g/dL (14.0-18.0); Mean Corpuscular HGB CONC 35.4 g/dL (32.0-36.0); Mean Corpuscular Hemoglobin 30.2 pg (27.0-31.0); Mean Corpuscular Volume 85.2 fL (78.0-98.0); Mean Platelet Volume 9.7 fL (7.4-10.4); Platelet Count 251 10x3/uL (130-400); RBC Distribution Width 14.6 % (11.5-14.5); Red Blood Cell (RBC) Count 4.27 mill/uL (4.70-6.10)
[2024-04-08 17:00] LABS: ALT (SGPT) 85 U/L (8-55); AST (SGOT) 64 U/L (5-34); Albumin 3.3 g/dL (3.4-4.8); Alkaline Phosphatase 98 U/L (40-110); Anion Gap 14 mmol/L (10-20); BUN (Urea Nitrogen) 17 mg/dL (8.4-25.7); Bilirubin, Total 0.5 mg/dL (0.2-1.2); Calc. Creatinine Clearance 0 mL/min (70-130); Calcium 8.9 mg/dL (7.8-10.44); Carbon Dioxide 23 mmol/L (23-31); Chloride 107 mmol/L (98-107); Estimated GFR 60; Globulin 2.4 g/dL (2.4-3.5); Glucose 258 mg/dL (80-115); Potassium 3.5 mmol/L (3.5-5.1); Protein, Total 5.7 g/dL (5.8-8.1); Sodium 140 mmol/L (136-145)
[2024-04-08 17:44] LABS: Bacteria/HPF None Seen HPF (None Seen); Bilirubin Negative (Negative); Blood, Urine Negative (Negative); CAUTI Indications for Culture Pelvic or flank pain; Clarity Clear (Clear); Glucose, Urine (Dipstick) 150 mg/dL (Negative); Ketone, Urine Trace mg/dL (Negative); Leukocyte Negative Leu/uL (Negative); Nitrite Negative (Negative); Protein, Urine (Dipstick) 70 mg/dL (Neg-Trace); RBC/HPF 0-3 HPF (0-3); Specific Gravity, Urine 1.041 (1.002-1.036); Squamous Epithelial 0-3 HPF (0-3); Urobilinogen Normal mg/dL (Less than 2); WBC/HPF 0-3 HPF (0-3)
[2024-04-08 17:47] LABS: Urine Culture Reflex No No
[2024-04-08] MEDS ORDERED: Cyclobenzaprine 10 MG TAB ONE (19:16)
== END 2024-04-08 19:24 | disposition home or self-care (01) ==
LOC: ERS 12:50
DX: M79.10 Myalgia, unspecified site (principal); R25.2 Cramp and spasm; I10 Essential (primary) hypertension; F17.210 Nicotine dependence, cigarettes, uncomplicated; C61 Malignant neoplasm of prostate; Z55.6 Problems related to health literacy; Z79.899 Other long term (current) drug therapy
CPT/HCPCS: 36415; 72170; 80053; 81001; 85025; 96374; 96375; J2270; J2405